=== PATIENT | female | born 1965 ===

== ENCOUNTER → 2017-03-16 | Outpatient (CLI) | payer OTHER ==
--- NOTE | 2017-03-16 11:40 | REP ---
Lumbar spine five views: There are no comparisons. Vertebral body heights are normal. There are no vertebral body compression deformities. There is bilateral L5 spondylolysis with grade 1 spondylolisthesis. There is disc space narrowing and degenerative disc disease at L2-3, L3-4 and L5 S1. Mineralization is normal. The pedicles, facets and sacroiliac articulations are unremarkable. There are calcifications in the pelvis on the right, nonspecific, phleboliths versus ureteral. Impression: Bilateral L5 spondylolysis with grade 1 L5 spondylolisthesis. Degenerative disc disease as described. Pelvic calcifications. Signed by Geovany Goldman MD 03/16/2017 11:31 A
== END ==
LOC: M CLY 10:47
PROVIDERS: ATTEND Family Medicine
DX: M51.36 Other intervertebral disc degeneration, lumbar region (principal)